=== PATIENT | female | born 1950 | race Caucasian/White ===

== ENCOUNTER 2020-06-22 13:47 | Emergency (ER) | payer MEDICARE, SELFPAY ==
[2020-06-22 13:48] VITALS: BP 129/92; PULSE 88; RESP 18; TEMP 36.9; O2SAT 94; BMI 31.5
--- NOTE | 2020-06-22 14:15 | RAD_ITS ---
STUDY: X-RAY - LEFT WRIST REASON FOR EXAM: Female, 70 years old. PAIN, HX FALL TECHNIQUE: 3 view(s) of the wrist were obtained. COMPARISON: None. FINDINGS: Question subtle nondisplaced fracture distal radius seen on the oblique view only. Moderate joint space narrowing at the scaphoid trapezium trapezoidal joint. No significant productive changes. Moderate soft tissue swelling adjacent to the distal radius IMPRESSION: Question subtle nondisplaced fracture distal radius seen on the oblique view only. Consider MRI for further evaluation as clinically indicated. Electronically Signed: Enrico Jean, at 16:26 EDT Tel , Service support , RAD/Wrist min 3 Views
--- NOTE | 2020-06-22 14:15 | RAD_ITS ---
STUDY: X-RAY - LEFT ELBOW REASON FOR EXAM: Female, 70 years old. PAIN, HX FALL TECHNIQUE: 3 view(s) of the elbow. COMPARISON: None. FINDINGS: Normal visualized humerus, radius and ulna. Normal radiocapitellar and ulnotrochlear articulations. The soft tissue structures are unremarkable. RAD/Elbow min 3 Views IMPRESSION: Normal x-ray examination of the elbow. Electronically Signed: Sidney Henderson, at 15:54 EDT , Service support ,
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
[2020-06-22 15:47] VITALS: BP 151/70; PULSE 68; RESP 20; O2SAT 92
== END 2020-06-22 17:42 | disposition home or self-care (01) ==
LOC: ED 15:15
PROVIDERS: Emergency Provider Emergency Medicine; PCP Internal Medicine
DX: S52.502A Unspecified fracture of the lower end of left radius, initial encounter for closed fracture (principal); S56.912A Strain of unspecified muscles, fascia and tendons at forearm level, left arm, initial encounter; V59.60XA Unspecified occupant of pick-up truck or van injured in collision with unspecified motor vehicles in traffic accident, initial encounter; Y93.89 Activity, other specified; Y92.9 Unspecified place or not applicable; F32.9 Major depressive disorder, single episode, unspecified; F17.200 Nicotine dependence, unspecified, uncomplicated; E66.9 Obesity, unspecified; Z68.31 Body mass index [BMI] 31.0-31.9, adult; Z79.82 Long term (current) use of aspirin
CPT/HCPCS: 29125; 73080; 73110; 99284

== ENCOUNTER 2021-01-19 01:28 | Outpatient (RCR) | payer MEDICARE, SELFPAY ==
[2021-01-19] MEDS: COVID-19 VACC, MRNA(PFIZER)/PF 30 MCG/0.3 ML SYRINGE IM (13:34)
[2021-02-09] MEDS: COVID-19 VACC, MRNA(PFIZER)/PF 30 MCG/0.3 ML SYRINGE IM (13:23)
== END 2021-01-19 23:59 ==
LOC: IMMUN 01:28
PROVIDERS: PCP Internal Medicine; Visit Provider Family Medicine
DX: Z23 Encounter for immunization (principal)
CPT/HCPCS: 0001A; 0002A; 91300

== ENCOUNTER → 2021-02-03 13:17 | Outpatient (CLI) | payer MEDICARE, SELFPAY ==
--- NOTE | 2021-02-03 13:45 | CT_ITS ---
STUDY: LOW DOSE CT LUNG CANCER SCREENING REASON FOR EXAM: Female, 70 years old. LUNG CA SCREENING. The patient has a 50 year smoking history. RADIATION DOSAGE (If Supplied By Facility): CTDIvol = ( 3.02 ) mGy, DLP = ( 102.32 ) mGycm TECHNIQUE: No contrast was administered. Low dose technique was utilized (average mAS-38 and kVp 120). 1.25 mm axial source images with a slice interval of 1.25-mm were reconstructed in lung windows. 2.5 mm axial source images with a slice interval of 2.5-mm were reconstructed in lung windows. 5.0 mm axial source images with a slice interval of 5.0-mm were reconstructed in soft tissue windows. Nodule measured using lung windows on PACS and/or independent workstation with automated measurement of minimum and maximum diameter. Nodule measurement reported as average diameter rounded to the nearest whole number. Growth is defined as an increase ins size of greater than 1.5 mm. COMPARISON: None. NODULES: No suspicious nodules are seen. Emphysema: Hyperinflation. Emphysematous changes worse in the upper lobes. Minimal linear scarring in the lingular segment of the left upper lobe. Endobronchial lesion: Aorta: Mild atherosclerotic calcific plaques of the aortic arch. Coronary arteries: Coronary artery calcification. Other chest and abdominal findings: Small spinal hernia. Enlargement of the right lobe of the thyroid gland. Correlation with ultrasound is recommended. CT/Low Dose CT Lung Screening IMPRESSION: Lung-RADS category 2 - Continue annual screening with LDCT in 12 months. IMPORTANT NOTES FOR USE: ACR Lung-RADS Version 1.0 Assessment Categories Release Date: March 15, 2014 Category: Coded 0-4 bases on nodule(s) with highest degree of suspicion. Negative screen is defined as categories 1 and 2; a positive screen is defined as categories 3 and 4. Category 3 and 4A nodules that are unchanged on interval CT should be coded as category 2, and individuals returned to screening in 12 months. Category 4X: Category 3 or 4 nodules with additional imaging findings that increase the suspicion of lung cancer, such as spiculation, GGN that doubles in size in 1 year, enlarged lymph notes, etc. Category Modifiers: S (significant finding unrelated to lung cancer) and C (prior history of treated lung cancer) may be added to the 0-4 Lung-RADS Electronically Signed: Sidney Henderson MD at 15:49 EDT , Service support ,
== END ==
PROVIDERS: PCP Internal Medicine; Referring Provider Nurse Practitioner Family; Visit Provider Nurse Practitioner Family
DX: Z12.2 Encounter for screening for malignant neoplasm of respiratory organs (principal); Z87.891 Personal history of nicotine dependence
CPT/HCPCS: 71271

== ENCOUNTER → 2021-02-22 | Outpatient (CLI) | payer MEDICARE, SELFPAY ==
--- NOTE | 2021-02-21 09:48 | THYROID_PTH ---
PATIENT: REMY HUSAIN LOC: [facility] U#:[id number] AGE/SX: 70/F ROOM: RE02/22/[address]: Dr. Katelyn Hodgson MD : 1950 BED: DIS: 02/22/2021 SPEC #: [id number] RECD: 02/22/21 12:01 STATUS: PUMA RESarah #: [id number] MERCY: 02/21/21 09:[address]: Katelyn Hodgson DEPT: SURGICAL PATHOLOGY RECD BY: Sara Castellano ENTERED: 02/22/21 12:50 SP TYPE: THYROID OTHR DR: Dr. Saturnino Maloney MD Tissues: Thyroid gland, NOS Procedures: Surgery Specimen Level IV HEADER OPERATION: Ultrasound-guided needle core biopsy, right thyroid PRE-OP DIAGNOSIS: Right thyroid nodule TISSUE SUBMITTED: Right thyroid nodule MICROSCOPIC DIAGNOSIS Right thyroid nodule, ultrasound-guided needle core biopsy: Benign thyroid tissue. Minute fragment of unremarkable skin. AM:saman 02/23/2021 MICROSCOPIC DESCRIPTION Slides are reviewed. GROSS DESCRIPTION Received is one container labeled with the patient's name and not further designated. The specimen consists of multiple irregular fragments of francis soft tissue that in aggregate measure 0.5 x 0.5 x 0.1 cm. The specimen is totally submitted in one cassette. / SJ:saman 02/22/21 TC:5 CPT: 11313 ADDENDUM ADDENDUM ADDENDUM ADDENDUM ADDENDUM ADDENDUM ADDENDUM ADDENDUM ADDENDUM ADDENDUM 06/07/2021 10:07 ADDENDUM 06/07/2021 10:07 ADDENDUM 06/07/2021 10:07 ADDENDUM 06/07/2021 10:07 ADDENDUM 06/07/2021 10:07 This addendum is added to incorporate an outside pathology consultation report. The case was examined at [facility] (#[id number]) and the following diagnosis was rendered. Right thyroid nodule, ultrasound-guided core needle biopsy: Follicular patterned thyroid tissue. Please see complete above mentioned consultation report in EMR
== END | disposition home or self-care (01) ==
LOC: LABSPEC 12:34
PROVIDERS: PCP Internal Medicine; Referring Provider Surgery; Visit Provider Surgery
DX: E04.1 Nontoxic single thyroid nodule (principal)
CPT/HCPCS: 88305

== ENCOUNTER → 2022-09-03 | Outpatient (CLI) | payer MEDICARE, SELFPAY ==
--- NOTE | 2022-09-03 12:45 | CDU_ITS ---
Reason For Study: OCCLUSION Rt. Velocities/BP Lt. Velocities/BP Prox CCA 57.2/5.3 cm/sec. Prox CCA 87.5/22.6 cm/sec. Mid CCA 79.9/21.4 cm/sec. Mid CCA 83.1/18.2 cm/sec. Dist CCA 63.3/221.5 cm/sec. Dist CCA 83.1/17.1 cm/sec. Prox ICA 125.3/30.3 cm/sec. Prox ICA 119.9/29.9 cm/sec. Mid ICA 114.3/15.7 cm/sec. Mid ICA 107.6/36.3 cm/sec. Dist ICA 123.5/35.8 cm/sec. Dist ICA 96.5/32.7 cm/sec. Rt. ICA/CCA = 125.3/79.9=1.6. Lt. ICA/CCA = 119.9/83.1=1.4. Prox ECA 123.5/35.8 cm/sec. Prox ECA 207.7/25.5 cm/sec. Rt. Vert. 44.3/10.3 cm/sec. Lt. Vert. 44.3/10.3 cm/sec. Right Extracranial There is homogeneous, smooth atherosclerotic plaque noted in the right common carotid artery. There is heterogeneous, irregular atherosclerotic plaque noted in the right internal carotid artery. There is heterogeneous, irregular atherosclerotic plaque noted in the right external carotid artery. Antegrade flow is noted in the right vertebral artery. Left Extracranial There is homogeneous, smooth atherosclerotic plaque noted in the left common carotid artery. There is heterogeneous, irregular atherosclerotic plaque noted in the left internal carotid artery. The left internal carotid artery is very tortuous. There is homogeneous, smooth atherosclerotic plaque noted in the left external carotid artery. Antegrade flow is noted in the left vertebral artery. Procedure Carotid Duplex [id number]. This is a Carotid Duplex examination using B-mode, color flow and specral Doppler. Exam performed in department. VL/Carotid Duplex Ultrasound Interpretation Summary Moderate (50-69%) stenosis right extracranial internal carotid. Mild (<50%) stenosis left extracranial internal carotid. Patent and antegrade vertebrals bilaterally. Ordering Physician: Jason Johnson Referring Physician: Saturnino Maloney Performed By: Klarissa Casanova, FLORY, RVT
== END | disposition home or self-care (01) ==
LOC: CVS 12:44
PROVIDERS: PCP Internal Medicine; Visit Provider Ophthalmology
DX: I65.23 Occlusion and stenosis of bilateral carotid arteries (principal); G43.B0 Ophthalmoplegic migraine, not intractable; H34.9 Unspecified retinal vascular occlusion
CPT/HCPCS: 93880

== ENCOUNTER → 2023-10-01 | Outpatient (CLI) | payer MEDICARE, SELFPAY ==
--- NOTE | 2023-10-01 10:55 | CDU_ITS ---
Reason For Study: carotid stenosis Rt. Velocities/BP Lt. Velocities/BP Prox CCA 55.1/8.8 cm/sec. Prox CCA 73.0/18.2 cm/sec. Mid CCA 78.7/19.2 cm/sec. Mid CCA 80.6/16.3 cm/sec. Dist CCA 75.9/19.2 cm/sec. Dist CCA 79.6/23.0 cm/sec. Prox ICA 161.3/38.9 cm/sec. Prox ICA 126.6/35.3 cm/sec. Mid ICA 152.1/26.1 cm/sec. Mid ICA 113.8/37.1 cm/sec. Dist ICA 93.7/22.5 cm/sec. Dist ICA 95.1/30.6 cm/sec. Rt. ICA/CCA = 2.0. Lt. ICA/CCA = 1.6. Prox ECA 265.1/29.3 cm/sec. Prox ECA 167.5/27.0 cm/sec. Rt. Vert. 30.5/7.8 cm/sec. Lt. Vert. 78.4/24.5 cm/sec. Right Extracranial There is homogeneous, smooth atherosclerotic plaque noted in the right common carotid artery. There is heterogeneous, irregular atherosclerotic plaque noted in the right internal carotid artery. There is heterogeneous, irregular atherosclerotic plaque noted in the right external carotid artery. Antegrade flow is noted in the right vertebral artery. Left Extracranial There is homogeneous, smooth atherosclerotic plaque noted in the left common carotid artery. There is heterogeneous, irregular atherosclerotic plaque noted in the left internal carotid artery. The left internal carotid artery is very tortuous. There is heterogeneous, irregular atherosclerotic plaque noted in the left external carotid artery. Antegrade flow is noted in the left vertebral artery. Procedure Carotid Duplex [id number]. This is a Carotid Duplex examination using B-mode, color flow and specral Doppler. The exam was diagnostic. Exam performed in department. VL/Carotid Duplex Ultrasound Interpretation Summary Moderate (50-69%) stenosis right extracranial internal carotid. Moderate (50-69%) stenosis left extracranial internal carotid. Patent and antegrade vertebrals bilaterally. Ordering Physician: Amanda Cabrales Performed By: Brice Pierce RVT
== END | disposition home or self-care (01) ==
PROVIDERS: PCP Internal Medicine; Referring Provider Physician Assistant; Visit Provider Physician Assistant
DX: I65.23 Occlusion and stenosis of bilateral carotid arteries (principal)
CPT/HCPCS: 93880

== ENCOUNTER 2023-11-13 17:20 | Emergency (ER) | payer MEDICARE, SELFPAY ==
[2023-11-13 17:22] VITALS: BP 147/127; PULSE 64; RESP 14; TEMP 37.2; O2SAT 90; BMI 26.0
--- NOTE | 2023-11-13 18:18 | EDS_ITS ---
HPI HPI - URI History of Present Illness Chief Complaint: Shortness of Breath Detail of Chief Complaint: Onset of illness November 03 Informant: patient and spouse/S.O. Onset/Context/Timing Onset: Days Context: Sudden Onset Timing: Continuous Quality: Upper respiratory symptoms with myalgias and arthralgias Location: Systemic viral symptoms Current Severity: Mild Maximum Severity: Severe Worsened by: Not Worsened By Swallowing, Eating Solids or Drinking Liquids Relieved by: Not Relieved By Tylenol or NSAIDs Associated Symptoms Associated Symptoms: Positive for Nasal Congestion, Headache, Myalgias, Nausea, Shortness of Breath and Productive Cough; Negative for Sinus Pressure, Vomiting, Diarrhea, Chest Pain, Nonproductive cough or Hemoptysis Narrative Narrative: Patient is a 73-year-old woman who is a former smoker. She has history of COPD. She has not been on prednisone recently. She was seen at an emergency room earlier today in [place]. She left [place]. She is taking care of her daughter who is positive for type a influenza. Apparently a family member who is a nurse practitioner prescribed Tamiflu. She states that the Tamiflu did not help. Patient does complain of headache. She does complain of fevers without chills. She does endorse myalgias arthralgias. She states her cough initially was very productive. Is not as productive. She states that looked nasty . Patient denies history of VTE. Patient denies leg pain, swelling discoloration. Patient denies pleuritic chest pain. Patient states she has inhalers but does not know how to use them She does endorse nausea without vomiting diarrhea. She denies urologic symptoms. She does endorse thirst and decreased appetite. Prior similar symptoms: Yes Recent Illness/Hospitalization: Yes ROS ROS ED Constitutional Constitutional ED: Reports chills, fever(s) and sweats; Denies weight loss Eyes Eyes: Denies blurry vision, change in vision or diplopia ENT ENT ED: Reports rhinorrhea and sore throat; Denies ear pain Cardiovascular Cardiovascular: Denies chest pain, orthopnea, palpitations, paroxysmal nocturnal dyspnea or racing heartbeat Respiratory/Chest Respiratory/Chest: Reports cough, dyspnea, dyspnea on exertion and sputum; Denies orthopnea or paroxysmal nocturnal dyspnea Gastrointestinal Gastrointestinal: Reports nausea; Denies abdominal pain, diarrhea or vomiting Genitourinary Genitourinary ED: Denies dysuria, hematuria or urinary frequency Musculoskeletal Musculoskeletal: Reports arthralgias and myalgias; Denies back pain Integumentary Denies rash Neurologic Neurologic: Reports headache(s) and weakness; Denies paresthesias Hematologic/Lymphatic Hematologic/Lymphatic: Reports easy bleeding and easy bruising [facility] Medical History (Updated 11/13/23 @ 20:[address] Mendoza Wiseman MD) History of depression Home Medications Turmeric 1 cap PO DAILY 05/27/16 [History Last Taken Unknown] aspirin 81 mg chewable tablet 81 mg PO DAILY@0800 05/27/16 [History Last Taken Unknown] sertraline 100 mg tablet 100 mg PO DAILY 05/27/16 [History Last Taken Unknown] ascorbic acid (vitamin C) 500 mg capsule mg PO 09/27/22 [History Last Taken Unknown] cholecalciferol (vitamin D3) 50 mcg (2,000 unit) capsule 50 mcg PO DAILY 09/27/22 [History Last Taken Unknown] multivitamin (Daily Multi-Vitamin tablet) 1 tab PO DAILY 09/27/22 [History Last Taken Unknown] pravastatin 10 mg tablet 5 mg PO DAILY 09/27/22 [History Last Taken Unknown] zinc acetate 25 mg (zinc) capsule 25 mg PO DAILY 09/27/22 [History Last Taken Unknown] doxycycline monohydrate 100 mg capsule 100 mg PO BID #10 CAPSULES 11/13/23 [Rx Last Taken Unknown] prednisone 20 mg tablet 60 mg (3 x 20 mg) PO DAILY #15 TABLETS 11/13/23 [Rx Last Taken Unknown] Allergy/AdvReac Type Severity Reaction Status Date / Time naproxen [From Aleve] Allergy Intermediate Rash Verified 11/13/23 17:21 Family History Other Arthritis CVA (cerebral vascular accident) Diabetes High cholesterol Pancreatic cancer Seizures Uterine cancer Surgical History (Updated 11/13/23 @ 18:36 by Libertad Schwarz) H/O section History of appendectomy History of bowel resection Social History (Updated 11/13/23 @ 18:[address] Mendoza Wiseman MD) household members: spouse Smoking Status: Former smoker substance use type: does not use EXAM Physical Exam Const Vital Signs: 11/13/23 17:22 11/13/23 18:33 11/13/23 18:34 Temperature 98.9 F Temperature Source Temporal Pulse Rate 64 68 Respiratory Rate 14 14 Respiratory Effort Normal Non-Labored Respiratory Depth Normal Respiratory Pattern Normal Blood Pressure 147/127 H Blood Pressure Mean 133 Pulse Ox 90 Oxygen Delivery Method Room Air Room Air 11/13/23 19:20 Temperature Temperature Source Pulse Rate 94 Respiratory Rate 26 H Respiratory Effort Respiratory Depth Respiratory Pattern Blood Pressure 151/65 H Blood Pressure Mean 93 Pulse Ox 90 Oxygen Delivery Method Room Air Positive well nourished and well developed Constitutional Narrative: Patient is breathing faster than 14 times a minute. There is use of accessory muscles. General Appearance ED: well developed and pallor; Negative for cyanotic, diaphoretic or NAD HEENT Reports dry mucous membranes normocephalic and atraumatic Face and Sinus: Negative for sinus tenderness Mouth ED: Yes dry mucous membranes Mouth: dry mucous membranes Throat: posterior oropharynx normal Eyes PERRL and EOMs intact bilaterally General Eye ED: Negative for pale conjunctiva or scleral icterus Neck no lymphadenopathy, supple, no meningeal signs and no JVD Neck Narrative: Trachea is midline. There is no stridor. Resp No normal respiratory effort and No clear to auscultation bilaterally Auscultation: rales bilateral base and wheezes expiratory wheezes, scattered wheezes and throughout Cardio S1 normal heart sound, S2 normal heart sound and no murmurs Rate: regular rate Rhythm: regular rhythm GI non-tender, non-distended and no masses Auscultation: normoactive bowel sounds Palpation: soft Extremity normal to inspection and full ROM Extremity Narrative: There is no asymmetry, swelling, discoloration, leg vein distention, palpable cords or tenderness along the distribution of the deep venous system. Neuro oriented x3, CN's II-XII intact bilaterally and no sensory deficits noted Sensorium / Orientation: alert Psych mental status grossly normal Skin General Skin Exam: pallor; Negative for jaundice Lesions: no lesions Rashes: no rashes MDM MDM MDM Narrative Medical decision making narrative: Patient in all likelihood has influenza type A. Onset of illness was 10 days ago. She was treated with Tamiflu with no improvement. Will obtain x-ray to assess for pneumonia. If she has post influenza pneumonia need to entertain possibility of MRSA infection. Since she has history of COPD she was treated with DuoNeb and albuterol nebulized treatments. She also received 60 mg of prednisone. Blood work was obtained to assess white count, H&H and to assess for any endorgan dysfunction in the event she has pneumonia on the x-ray. Lab Data Attestation: I reviewed the patient's lab results. Lab results narrative: See BC normal. Basic metabolic panel is unremarkable. Lactate is not. Labs: Laboratory Results - last 24 hr 11/13/23 18:27 WBC 7.6 RBC 4.74 Hgb 14.0 Hct 41.9 MCV 88.4 MCH 29.5 MCHC 33.4 RDW Std Deviation 39.8 RDW Coeff of Linette 12.2 Plt Count 233 MPV 9.9 Immature Gran % (Auto) 0.300 Neut % (Auto) 63.9 Lymph % (Auto) 26.1 [place] % (Auto) 8.1 Eos % (Auto) 1.2 Baso % (Auto) 0.4 Absolute Neuts (auto) 4.9 Absolute Lymphs (auto) 1.99 Nucleated RBC % 0 Sodium 142 Potassium 3.7 Chloride 109 H Carbon Dioxide 28.0 Anion Gap 5 BUN 15 Creatinine 0.79 Estim Creat Clear Calc 46.20 Est GFR (MDRD) Af Amer 91 Est GFR (MDRD) Non-Af 75 BUN/Creatinine Ratio 18.9 Glucose 113 H Lactic Acid 0.8 Calcium 9.6 Rapid antigen for influenza and COVID are both negative. Radiography Chest X-Ray - ED: 2 View and Read by ED Physician (2 view chest x-ray reveals no obvious infiltrate. There is possibly slight increased haziness on the right side. Cardiac silhouette and size normal. No effusions noted. No pneumothorax noted. Perihilar regions unremarkable. Osseous structures unremarkable.) Diagnostic Testing: Clinical Impression(s) from Imaging Studies Chest X-Ray 11/13/23 19:10 IMPRESSION: No active disease. Electronically Signed: Radames Gautam MD at 19:45 EST , Rhythm Strip Rhythm Strip: Sinus Rhythm Rate: 82 Treatment and Re-Evaluation Narrative: Patient was reassessed at 2050. Patient has slight wheeze with forced expiration only. She is moving significantly more air than when she arrived. Her breathing is not labored. She was informed of her test results. Will have respiratory therapy instruct her how to use inhaler since she is never used 1. She also will receive a prescription for prednisone. Since she has had symptoms for 2 weeks and has history of COPD will place on short course of doxycycline as well. Discharge Plan Triage Chief Complaint: Shortness of Breath ED Provider: Mendoza Wiseman Dx/Rx/DC Orders Clinical Impression: Upper respiratory infection with cough and congestion, Acute bronchospasm, Acute exacerbation of chronic obstructive pulmonary disease Prescriptions: New prednisone 20 mg tablet 60 mg PO DAILY Qty: 15 0RF doxycycline monohydrate 100 mg capsule 100 mg PO BID Qty: 10 0RF No Action sertraline 100 MG tablet 100 mg PO DAILY aspirin 81 MG tablet,chewable 81 mg PO DAILY@0800 Turmeric 1 cap PO DAILY Primary Care Provider: Saturnino Maloney Referrals: Saturnino Maloney MD [Primary Care Provider] - 3-5 Days if not improving Disposition Disposition: Home, Self Care
[2023-11-13] MEDS: predniSONE 20 MG Tablet 60 MG PO (18:33)
[2023-11-13 18:34] VITALS: PULSE 68; RESP 14
[2023-11-13] MEDS: Ipratropium/Albuterol Sulfate 3 ML AMPUL.NEB INHALATION (18:34)
[2023-11-13] MEDS: Albuterol 2.5 MG/3 ML VIAL.NEB. INHALATION ×2 (18:34)
[2023-11-13 18:43] LABS: Absolute Lymphocyte Count 1.99 X10^3/uL (0.83-4.51); Absolute Neutrophil Count 4.9 X10^3/uL (2.0-7.7); Basophil# 0.03 X10^3/uL; Basophil% 0.4 % (0-1); Eosinophil# 0.09 X10^3/uL; Eosinophils% 1.2 % (0-5); Hematocrit 41.9 % (37-47); Lymphocyte # 1.99 X10^3/ul (0.83-4.51); Lymphocyte % 26.1 % (19-41); Mean Corp Hgb Conc 33.4 g/dL (32-36); Mean Corpuscular Hgb 29.5 pg (27.0-32.0); Mean Corpuscular Volume 88.4 fL (81-99); Mean Platelet Vol. 9.9 fl (6.2-12.0); Monocyte# 0.62 X10^3/uL; Monocyte% 8.1 % (0-10); NRBC Flagged by Analyzer 0 % (0-5); Neutrophil # 4.86 X10^3/uL (2.7-7.7); Neutrophil % 63.9 % (47-70); Platelet Count 233 K/mm3 (150-450); RBC Distribution Width CV 12.2 % (11.6-14.6); RBC Distribution Width SD 39.8 fl (35.1-43.9); Red Blood Count 4.74 M/mm3 (4.2-5.4); White Blood Count 7.6 K/mm3 (4.4-11.0)
[2023-11-13 18:54] LABS: Anion Gap 5 (5-15); BUN 15 mg/dL (7-18); BUN/Creat Ratio 18.9 RATIO (10-20); Calcium,Total 9.6 mg/dL (8.5-10.1); Chloride 109 mmol/L (98-107); Creatinine, Serum 0.79 mg/dL (0.55-1.02); EST Glomerular Filtration Rate 75 mL/min (>60); Est Glom Filt Rate - Afr Amer 91 mL/min (>60); Glucose 113 mg/dL (74-106); Potassium 3.7 mmol/L (3.5-5.1); Sodium Level 142 mmol/L (136-145)
[2023-11-13 19:01] LABS: Lactic Acid 0.8 mmol/L (0.4-1.9)
--- NOTE | 2023-11-13 19:10 | RAD_ITS ---
STUDY: X-RAY CHEST REASON FOR EXAM: Female, 73 years old. Cough, dyspnea and wheezing TECHNIQUE: PA and lateral views of the chest. COMPARISON: None. FINDINGS: The lungs are clear and expanded. There is no demonstrated pleural abnormality. Normal size heart. Normal mediastinum and lucina. Normal visualized pulmonary arteries. Normal visualized aortic arch and descending thoracic aorta. There is a dextroscoliosis of the thoracic spine. Normal visualized ribs, clavicles, and shoulders. There is no demonstrated abnormality of the visualized soft tissue structures of the upper abdomen. RAD/Chest PA and Lateral IMPRESSION: No active disease. Electronically Signed: Radames Gautam MD at 19:45 EST ,
[2023-11-13 19:20] VITALS: BP 151/65; PULSE 94; RESP 26; O2SAT 90
[2023-11-13] MEDS: Albuterol Sulfate 8 gm Inhaler (60 puffs) 4 PUFF INHALATION (21:02)
[2023-11-13 21:04] VITALS: BP 151/65; PULSE 94; RESP 24; O2SAT 92
== END 2023-11-13 21:44 | disposition home or self-care (01) ==
PROVIDERS: Emergency Provider Emergency Medicine; PCP Internal Medicine; Visit Provider Emergency Medicine
DX: J06.9 Acute upper respiratory infection, unspecified (principal); J44.1 Chronic obstructive pulmonary disease with (acute) exacerbation; J98.01 Acute bronchospasm; Z87.891 Personal history of nicotine dependence
CPT/HCPCS: 71046; 80048; 83605; 85025; 87428; 94640; 99284

== ENCOUNTER → 2024-10-07 | Outpatient (CLI) | payer MEDICARE, SELFPAY ==
--- NOTE | 2024-10-07 14:18 | CDU_ITS ---
Reason For Study: Carotid stenosis Rt. Velocities/BP Lt. Velocities/BP Prox CCA 57/10.7 cm/sec. Prox CCA 61.9/12.4 cm/sec. Mid CCA 57/14.5 cm/sec. Mid CCA 64.1/15.7 cm/sec. Dist CCA 53.2/11.6 cm/sec. Dist CCA 79.5/22.3 cm/sec. Prox ICA 163.1/27 cm/sec. Prox ICA 133.9/31.6 cm/sec. Mid ICA 69.1/17.2 cm/sec. Mid ICA 93.7/20.6 cm/sec. Dist ICA 61.7/14.3 cm/sec. Dist ICA 79.2/19.8 cm/sec. Rt. ICA/CCA = 2.86. Lt. ICA/CCA = 2.09. Prox ECA 221.1/26.7 cm/sec. Prox ECA 154/18.8 cm/sec. Rt. Vert. 39/9.7 cm/sec. Lt. Vert. 41.9/11.6 cm/sec. Right Extracranial There is homogeneous, smooth atherosclerotic plaque noted in the right common carotid artery. There is heterogeneous, irregular atherosclerotic plaque noted in the right internal carotid artery. There is heterogeneous, irregular atherosclerotic plaque noted in the right external carotid artery. Antegrade flow is noted in the right vertebral artery. Left Extracranial There is homogeneous, smooth atherosclerotic plaque noted in the left common carotid artery. There is heterogeneous, irregular atherosclerotic plaque noted in the left internal carotid artery. There is heterogeneous, irregular atherosclerotic plaque noted in the left external carotid artery. Antegrade flow is noted in the left vertebral artery. Procedure Carotid Duplex 22541. This is a Carotid Duplex examination using B-mode, color flow and specral Doppler. Exam performed in department. VL/Carotid Duplex Ultrasound Interpretation Summary Moderate (50-69%) stenosis right extracranial internal carotid. Moderate (50-69%) stenosis left extracranial internal carotid. Patent and antegrade vertebrals bilaterally. Ordering Physician: Coleman Jaime Referring Physician: Saturnino Maloney M.D. Performed By: Jeanne Hinojosa RVT
== END | disposition home or self-care (01) ==
PROVIDERS: PCP Internal Medicine; Referring Provider Physician Assistant; Visit Provider Physician Assistant
DX: I65.23 Occlusion and stenosis of bilateral carotid arteries (principal)
CPT/HCPCS: 93880